=== PATIENT | female | born 1950 | race Caucasian/White ===

== ENCOUNTER 2017-01-23 07:01 | Observation (INO) | payer OTHER ==
[~2017-01-23] VITALS: Ht 157.5 cm; Wt 81.1 kg
[2017-01-23] VITALS (11 sets, daily range): BP systolic 100–143; BP diastolic 47–106
--- NOTE | ~2017-01-23 | CATHLAB ---
[facility] [place] [employer] [place] [address] INVASIVE PROCEDURE REPORT Name: LANG BALES Room #: 217-P [facility] [place] ..#: [id number] Admission: 01/23/17 Attend Phys: Waldemar Diego, Discharge: 01/24/17 Date of : 54 Date of Service: 01/26/17 1745 Report #: [id number] THIS REPORT FOR: //name// APPROVED REPORT Patient Details Patient Status: Out-Patient Room #: The patient is a 66 year-old female Event Personnel Waldemar Diego Product Safety Associate, Zo Live, Shad Jordan RN, Neftali Whitman Scrub Procedures Performed Left Heart Cath w/or w/o Coronaries [id number] [facility] Aortogram Abdominal Peripheral Angio 841685 , Right Heart CatheterizationDES Place w/wo Plasty Single RCA 575873 , Selective Right and Left Coronary Angiography Procedure Narrative The was infiltrated with 1% Lidocaine subcutaneous anesthesia. A PINNACLE 6FR Sheath #[id number] sheath was inserted into the RFA^. Coronary angiography was performed using coronary diagnostic catheters. The right coronary system was accessed and visualized with a JR4 catheter. The left coronary system was accessed and visualized with a JL4 catheter. The left ventricle was accessed and visualized with a PIGTAIL catheter. Left ventriculogram was performed in 30 degree projection. An aortogram of the abdominal aorta was performed. Closure device was deployed with a Fr MYNXGRIP 6/7F #[id number]. The patient tolerated the procedure well and there were no complications associated with the procedure. A hematoma occurred. Intraoperative Conscious Sedation Sedation start time: 9:32 Case end Time: 10:06 Fentanyl 50.0 mcg Versed 1.0 mg Fluoro Time: 4.55 minutes Dose: DAP 5430.00 cGycm2 694 mGy Contrast Type and Amount: Omnipaque 165 ml Hemodynamics The aortic pressure is 175/62 mmHg with a mean of 101 mmHg. The left ventricular pressure is 156/16 mmHg with a mean of mmHg. The left ventricular end diastolic pressure is 29 mmHg. [facility] [address] [place] [address] INVASIVE PROCEDURE REPORT Name: LANG BALES LEONIE Room #: 217-P [facility] [place] M.R.#: [id number] Admission: 01/23/17 Attend Phys: Waldemar Diego, Discharge: 01/24/17 Date of : 54 Date of Service: 01/26/17 1745 Report #: [id number] PCI Technique Lesion Percutaneous coronary intervention was performed on the mid right coronary artery. A LAUNCHER 6FR JR 4 #[id number] Guide Catheter was used to engage the RCA ostium. A Luge Wire .014 x 182CM #[id number] Interventional Guidewire was used to cross the lesion. BALLOON DILATION A Balloon catheter Sprinter OTW 2.5 x 12 #[id number] was inserted and inflated up to 10.00atm for 29seconds. STENT DEPLOYMENT A drug-eluting stent RESOLUTE OTW 2.5 X 12 #[id number] was inserted and inflated up to 16.00atm for 33seconds. Conclusion #1 successful PTCA stent of a 90% mid RCA lesion to 0% with placement of a 2.5 x 12 resolute drug-eluting stent postdilated 2.7 mm in size. Proximal 50% RCA lesion will follow #2 left main mild irregularity giving rise to LAD and circumflex #3 LAD with mild irregularity 3040% proximal mildly calcified extends around the apex with minimal disease #4 circumflex with the proximal placed stent a Wiktor stent placed in 1996 is widely patent with a 30-40% proximal OM lesion nondominant #5 normal left ventricular size and systolic function EF 50-55% #6 abdominal aorta is intact normal in caliber no aneurysm is noted iliac system and renal arteries widely patent Recommendations plan continue aggressive risk factor modification dual antiplatelet therapy for the coronary stent. Transfer to CCU in stable condition to follow stent protocol <ELECTRONICALLY SIGNED> By: Waldemar Diego MD, FACC 01/26/171744 44 44 Waldemar Diego MD, FACC /INF
[2017-01-23] MEDS ORDERED: LIVALO4 MG PO (07:25)
[2017-01-23] MEDS ORDERED: OMEPRAZOLE 20 M20 M1 PO (07:25)
[2017-01-23] MEDS ORDERED: PROAIR HFA8.5 GM INH (07:25)
[2017-01-23] MEDS ORDERED: ASPIRIN325 PO (07:26)
[2017-01-23] MEDS ORDERED: CLARITIN10 MG PO (07:26)
[2017-01-23] MEDS ORDERED: BYSTOLIC 5 MG5 M1 PO (07:26)
[2017-01-23] MEDS ORDERED: TYLENOL EXTRA500 MG PO (07:26)
[2017-01-23 08:15] LABS: HEMOGLOBIN 11.7 gm/dL (12.0-15.0); MCH 31.1 pg (26.0-34.0); MCHC 33.4 g/dL (28.0-37.0); MCV 93.2 fL (80.0-100.0); RBC 3.75 mil/uL (4.20-5.00); RDW 13.9 % (10.5-14.5); WBC 5.4 thou/uL (4.0-11.0)
[2017-01-23 08:17] LABS: CREATININE 0.7 mg/dL (0.6-1.0); POTASSIUM 3.6 mmol/L (3.5-5.1)
[2017-01-24 03:48] VITALS: BP 120/60
[2017-01-24] MEDS ORDERED: ASPIRIN325 PO (07:40)
[2017-01-24] MEDS ORDERED: LIPITOR 20 MG T20 M1 PO (07:40)
[2017-01-24] MEDS ORDERED: CLOPIDOGREL75 MG PO (07:40)
[2017-01-24 07:41] VITALS: BP 107/51
[2017-01-24 09:56] VITALS: BP 107/51
== END 2017-01-24 11:40 | disposition home or self-care (01) ==
LOC: CATH 07:01 → 2N 13:32 → ENTRNSPT 01-24 11:34 → EDTRNSPTSTS 01-24 11:37 → 2N 01-24 11:40
PROVIDERS: Internal Medicine Cardiovascular Disease
DX: I25.10 Atherosclerotic heart disease of native coronary artery without angina pectoris (principal); I10 Essential (primary) hypertension; E78.00 Pure hypercholesterolemia, unspecified; Z95.5 Presence of coronary angioplasty implant and graft